=== PATIENT | female | born 1940 | race Caucasian/White ===

== ENCOUNTER → 2017-11-18 09:14 | Outpatient (CLI) | payer MEDICARE, SELFPAY ==
[2017-11-18 11:07] LABS: Alanine Aminotransferase 52 IU/L (9-52); Albumin 4.1 g/dL (3.5-5.0); Albumin Globulin Ratio 1.3 (1.0-2.8); Alkaline Phosphatase 98 U/L (38-126); Aspartate Aminotransferase 36 IU/L (14-36); BUN Creatinine Ratio 33.8 (6-22); Bilirubin Total 0.4 mg/dL (0.2-1.3); Blood Urea Nitrogen 27 mg/dL (7-17); Calcium 10.8 mg/dL (8.4-10.2); Carbon Dioxide 30 mmol/L (22-32); Chloride 105 mmol/L (98-107); Cholesterol 187 mg/dL (140-199); Estimated Glomerular Filt Rate > 60.0 mL/min (>60); Globulin 3.2 g/dL (1.7-4.1); Glucose 95 mg/dL (80-110); HDL Cholesterol 52 mg/dL (40-60); HEMOLYSIS < 15 (0-50); LDL Cholesterol Calculated 111 mg/dL (<100); Potassium 4.1 mmol/L (3.4-5.1); Sodium 143 mmol/L (137-145); Total Protein 7.3 g/dL (6.3-8.2); Triglycerides 121 mg/dL (35-150)
== END ==
PROVIDERS: PCP Internal Medicine; Visit Provider Internal Medicine
DX: E78.5 Hyperlipidemia, unspecified (principal)
CPT/HCPCS: 36415; 80053; 80061

== ENCOUNTER 2018-08-04 21:41 | Emergency (ER) | payer MEDICARE, SELFPAY ==
[2018-08-04 22:30] VITALS: BP 142/62; PULSE 94; RESP 16; TEMP 37.5; O2SAT 96
--- NOTE | 2018-08-04 22:44 | ED.FEMALEGU ---
HPI - Female Genitourinary General Chief complaint: Urogenital-Female Stated complaint: Possible UTI Time Seen by Provider: 08/04/18 22:36 Source: patient Mode of arrival: ambulatory Limitations: no limitations History of Present Illness HPI Narrative: Patient is 78-year-old female presenting with lower abdominal pain. she is a fairly new diagnosis of ovarian cancer. In fact she had surgery last week by [facility] where she had everything removed. She was doing okay until about 2 days ago where she started having increasing lower abdominal pain and frequent urination. No fever. No nausea or vomiting. Related Data Previous Rx's Medication Instructions Recorded lisinopril-hydrochlorothiazide 1 tab PO QAM #90 tab 10/20/16 metronidazole 1 demi TOPICAL BID #45 gm 10/20/16 naproxen 500 mg PO SEE INSTRUCTIONS #60 tab 10/20/16 hydrocodone-acetaminophen [[place]] 1 tab PO Q4-6H PRN #10 tab 08/05/18 levofloxacin [Levaquin] 750 mg PO DAILY #7 tab 08/05/18 Allergies Allergy/AdvReac Type Severity Reaction Status Date / Time No Known Drug Allergies Allergy Verified 08/04/18 22:30 Review of Systems Review of Systems ROS Unobtainable: All systems reviewed & are unremarkable except as noted in HPI and below Constitutional Reports chills, Denies fatigue and Denies fever(s) Cardiovascular Denies chest pain, Denies irregular heart rhythm, Denies lightheadedness, Denies palpitations, Denies dyspnea, Denies dyspnea on exertion and Denies orthopnea Respiratory Denies cough, Denies dyspnea, Denies dyspnea on exertion and Denies wheezing Gastrointestinal Gastrointestinal: Reports abdominal pain, Denies change in bowel habits, Denies diarrhea, Denies nausea and Denies vomiting Genitourinary Reports urinary incontinence Musculoskeletal Denies back pain, Denies muscle weakness, Denies numbness and Denies tingling Integumentary/Breasts Denies pruritus, Denies erythema, Denies rash and Denies wounds Neurologic Denies numbness and Denies tingling Endocrine Denies fatigue and Denies palpitations Allergic/Immunologic Denies wheezing [facility] Medical History (Updated 08/05/18 @ 05:32 by Melanie Pinedo DO) Ovarian cancer (Acute) Surgical History History of knee replacement S/P total abdominal hysterectomy and bilateral salpingo-oophorectomy (03/05/15) Status post hernia repair Social History Smoking Status: Unknown if ever smoked Social History Smoking Status: Unknown if ever smoked Exam Initial Vital Signs Initial Vital Signs: Vital Signs Temperature 99.5 F 08/04/18 22:30 Pulse Rate 94 H 08/04/18 22:30 Respiratory Rate 16 08/04/18 22:30 Blood Pressure 142/62 H 08/04/18 22:30 Pulse Oximetry 96 08/04/18 22:30 GENERAL: Patient appears in pain alert oriented x3 HEENT: Head atraumatic,EOMI, pupils reactive, neck is supple CARDIOVASCULAR: Regular rate and rhythm without murmurs, rubs or gallops. RESPIRATORY: Breath sounds equal bilaterally, no wheezes rales or rhonchi. ABDOMEN: Soft, nontender more left lower quadrant than right. Incision is with yvonne still in it no erythema no tenderness hernias appreciated normal bowel sounds EXTREMITIES: Normal range of motion, no clubbing or edema. Neurovascularly intact NEUROLOGICAL: Alert and oriented x4.Normal gait and speech. SKIN: Warm, dry, no laceration, no petechiae, no rashes or lesions. Course Orders Ordered: ED Orders 08/04/18 22:00 Urine Microscopic Stat 08/04/18 23:23 CT abdomen pelvis w con Stat 08/04/18 23:40 Complete Blood Count AUTO DIFF Stat Comprehensive Metabolic Panel Stat Lactate (Lactic Acid) Stat Lipase Stat 08/04/18 23:49 Blood Culture Stat Discontinued Medications Hydrocodone Bitart/Acetaminophen (Vicodin Prepack) 1 bottle MISC SEEINSTR ONE Stop: 08/05/18 03:43 Last Admin: 08/05/18 04:18 Dose: 1 bottle Hydromorphone HCl (Dilaudid) 0.5 mg IV NOW ONE Stop: 08/04/18 23:23 Last Admin: 08/04/18 23:36 Dose: 0.5 mg Hydromorphone HCl (Dilaudid) 0.5 mg IV NOW ONE Stop: 08/05/18 01:28 Last Admin: 08/05/18 01:28 Dose: 0.5 mg Sodium Chloride (Normal Saline 0.9%) 1,000 mls @ 1,000 mls/hr IV CONT PUMA Last Infusion: 08/05/18 01:28 Dose: 0 mls/hr Admin: 08/04/18 23:37 Dose: 1,000 mls/hr Levofloxacin (Levaquin) 750 mg PO NOW ONE Stop: 08/05/18 03:43 Last Admin: 08/05/18 04:18 Dose: 750 mg Ondansetron HCl (Zofran) 4 mg IV NOW ONE Stop: 08/04/18 23:50 Last Admin: 08/04/18 23:52 Dose: 4 mg Consultations Consultation #1: Dr. Valle Time: 03:30 Vital Signs - 8 hr 08/04/18 22:30 08/05/18 04:39 Temperature 99.5 F Pulse Rate 94 H 67 Respiratory Rate 16 16 Blood Pressure 142/62 H 138/72 Pulse Oximetry 96 98 MDM - Female Genitourinary Lab Data Attestation: I reviewed the patient's lab results. Result diagrams: 08/04/18 23:40 08/04/18 23:40 Lab Results 08/04/18 08/04/18 08/04/18 Range/Units 22:00 23:40 23:40 WBC 17.7 H (4.5-11.0) X10^3/uL RBC 4.38 (4.0-5.2) X10^6/uL Hgb 11.5 L (12.0-16.0) g/dL Hct 35.0 L (36-46) % MCV 80.1 (80-100) fL MCH 26.4 (26-34) PG MCHC 32.9 (30-36) % RDW 14.7 (11.6-14.8) % Plt Count 323 (150-400) X10^3/uL Neut % (Auto) 88.4 H (50-75) % Lymph % (Auto) 4.3 L (25-40) % [place] % (Auto) 6.8 (3-14) % Eos % (Auto) 0.1 L (2-4) % Baso % (Auto) 0.4 (0-2) % Neut # (Auto) 00662 H (8726-4474) /uL Lymph # (Auto) 800 L (7228-5766) /uL [place]ison # (Auto) 1200 H (0-900) /uL Eos # (Auto) 0 (0-450) /uL Baso # (Auto) 100 (0-100) /uL Sodium 136 L (137-145) mmol/L Potassium 4.1 (3.4-5.1) mmol/L Chloride 100 (98-107) mmol/L Carbon Dioxide 27 (22-32) mmol/L BUN 15 (7-17) mg/dL Creatinine 0.90 (0.52-1.04) mg/dL Estimated GFR > 60.0 (>60) mL/min BUN/Creatinine Ratio 16.7 (6-22) Glucose 123 H (80-110) mg/dL Lactate (0.7-2.1) mmol/L Calcium 10.1 (8.4-10.2) mg/dL Total Bilirubin 0.4 (0.2-1.3) mg/dL AST 38 H (14-36) IU/L ALT 55 H (9-52) IU/L Alkaline Phosphatase 151 H (38-126) U/L Total Protein 6.7 (6.3-8.2) g/dL Albumin 3.6 (3.5-5.0) g/dL Globulin 3.1 (1.7-4.1) g/dL Albumin/Globulin Ratio 1.2 (1.0-2.8) Lipase 45 (23-300) U/L Urine RBC 1-5/hpf (0-5/HPF) Urine WBC 5-10/hpf H (0-5/HPF) Ur Squamous Epith Cells 10-30 /hpf H (0-5/HPF) Urine Bacteria Moderate (10-30) H (None) Ur Culture Indicated? Cult not indicated 08/04/18 Range/Units 23:40 WBC (4.5-11.0) X10^3/uL RBC (4.0-5.2) X10^6/uL Hgb (12.0-16.0) g/dL Hct (36-46) % MCV (80-100) fL MCH (26-34) PG MCHC (30-36) % RDW (11.6-14.8) % Plt Count (150-400) X10^3/uL Neut % (Auto) (50-75) % Lymph % (Auto) (25-40) % [place] % (Auto) (3-14) % Eos % (Auto) (2-4) % Baso % (Auto) (0-2) % Neut # (Auto) (6005-4468) /uL Lymph # (Auto) (3917-4483) /uL Addison # (Auto) (0-900) /uL Eos # (Auto) (0-450) /uL Baso # (Auto) (0-100) /uL Sodium (137-145) mmol/L Potassium (3.4-5.1) mmol/L Chloride (98-107) mmol/L Carbon Dioxide (22-32) mmol/L BUN (7-17) mg/dL Creatinine (0.52-1.04) mg/dL Estimated GFR (>60) mL/min BUN/Creatinine Ratio (6-22) Glucose (80-110) mg/dL Lactate 0.9 (0.7-2.1) mmol/L Calcium (8.4-10.2) mg/dL Total Bilirubin (0.2-1.3) mg/dL AST (14-36) IU/L ALT (9-52) IU/L Alkaline Phosphatase (38-126) U/L Total Protein (6.3-8.2) g/dL Albumin (3.5-5.0) g/dL Globulin (1.7-4.1) g/dL Albumin/Globulin Ratio (1.0-2.8) Lipase (23-300) U/L Urine RBC (0-5/HPF) Urine WBC (0-5/HPF) Ur Squamous Epith Cells (0-5/HPF) Urine Bacteria (None) Ur Culture Indicated? Urine Dip Bedside Urine Glucose Negative Bedside Urine Bilirubin - Negative Bedside Urine Ketone ++ 40 Urine Specific [place] 1.020 Bedside Urine Occult Blood + Bedside Urine pH 6.5 Bedside Urine Protein + 30 Bedside Urine Urobilinogen - Negative Bedside Urine Nitrite - Negative Bedside Urine Leukocytes ++ [address] scan - abdomen: Radiologist's impression: production shift supervisor report: Large serpentine fluid collection left lower quadrant and pelvis. Question large seroma versus abscess. Vertically-oriented fluid collection low abdominal and pelvic wall question seroma versus abscess MDM Narrative Medical decision making narrative: The patient received Dilaudid for pain which seemed to help. She has low-grade fever and leukocytosis of 17. I have called and spoken with Dr. Valle, oncology accounts receivable associate at [facility]. She has reviewed the CT herself. At this time is does not think patient needs to be transferred no drain needed. However she does recommend antibiotics. She is aware of patient's leukocytosis and low-grade fever. Recommend outpatient follow-up. The patient's biggest complaint is urinary incontinence. It is possible she has a UTI however squamous epithelial cells 10-30. The patient will go home with Levaquin she received her 1st dose in the ED. Overall she does not appear septic. Lactic acid is normal vitals within normal limits. and pain is controlled with Dilaudid. Discussed with both patient and plan of follow-up in clinic and antibiotics. Discharge Plan Departure Patient Disposition: Home Clinical Impression: Acute UTI Discharge Date/Time: 08/05/18 04:40 Interventions: ED Discharge Assessment Last Done: 08/05/18 04:39 Instructions: DI for Urinary Tract Infection (UTI) Activity Restrictions/Additional Instructions: *You have been diagnosed with UTI, abdominal seroma *What to do: At this time ER found to have a fluid collection on the left side. I have spoken with [facility] at this time recommend conservative treatment with antibiotics and pain control. Hopefully it resolved on its own. They should call you tomorrow to schedule follow-up next week *Continue to take medications as directed Levaquin 750 mg once a day for 7 days [place] 1 tablet every 4 hours or 2 tablets every 6 hours only if needed for severe pain *Follow up with your primary care provider in 2-3 days, [facility], if you do not hear from them tomorrow by noon please call them to schedule follow-up appointment for next week *Return to ER if you should have increasing pain, fever, persistent vomiting or any new, worsening or concerning symptoms CONTROLLED SUBSTANCE DISCHARGE (Narcotoic/benzodiazepine/Flexeril/Phenergan) 1. You have been prescribed narcotic medications, it does have acetaminophen/Tylenol/paracetamol in it so do not take extra Tylenol or Tylenol containing products 2. Please understand that we cannot provide further refills of narcotics, benzodiazepines or controlled substances through the ED and her pain management will need to be through your provider. 3. While on these medications you cannot drive or operate heavy machinery. 4. You cannot sign legal documents or perform any duties such as this. 5. As long as you're taking opiate pain medications he should also be taking a stool softener such as Colace, Dulcolax, MiraLAX or prune juice, to help avoid constipation. Prescriptions: New hydrocodone-acetaminophen [[place]] 7.5-325 mg tablet 1 tab PO Q4-6H PRN (Reason: pain) Qty: 10 RF: 0 levofloxacin [Levaquin] 750 mg tablet 750 mg PO DAILY Qty: 7 RF: 0 No Action lisinopril-hydrochlorothiazide 20 MG/12.5 MG tablet 1 tab PO QAM Qty: 90 RF: 3 metronidazole 0.75 % cream 1 demi Topical BID Qty: 45 RF: 12 naproxen 500 MG tablet 500 mg PO SEE INSTRUCTIONS Qty: 60 RF: 4
[2018-08-04 22:47] LABS: Bacteria Urine Moderate (10-30); Culture Indicated Urine Cult Not Indicated; RBC Urine 1-5/HPF (0-5/HPF); Squamous Epithelial Cell Urine 10-30 /HPF (0-5/HPF); WBC Urine 5-10/HPF (0-5/HPF)
--- NOTE | 2018-08-04 23:23 | DI.CT.S_ITS ---
PROCEDURE: CT ABDOMEN PELVIS W CON INDICATIONS: ovarian cancer surgery last week increase in pain TECHNIQUE: After the administration of intravenous contrast, 5 mm thick sections acquired from the diaphragm to the symphysis. 5 mm coronal and sagittal reformats were acquired. For radiation dose reduction, the following was used: automated exposure control, adjustment of mA and/or kV according to patient size. COMPARISON: [facility], , ABDOMEN COMPLETE, 06/25/2017, 11:09. FINDINGS: Image quality: Excellent. ABDOMEN: Lung bases: Linear scarring/atelectasis in posterior aspect of bilateral lung bases are seen. Heart size is normal. Solid organs: Liver is normal in size. Hepatic steatosis is seen. 1.3 x 0.9 cm hypodensity involving left lobe of liver is noted, which may represent hepatic cyst. Gallbladder is within normal limits. Biliary system is non dilated. Pancreas enhances normally. Spleen is normal in size and enhancement. No adrenal nodules. Kidneys demonstrate normal size and enhancement, without hydronephrosis. Peritoneum and bowel: There is a small hiatal hernia. No evidence of bowel obstruction. Extensive sigmoid diverticulosis is seen, no CT evidence of acute diverticulitis. Postsurgical changes are noted in left lower quadrant abdomen with multiple surgical clips. There is a serpentine fluid collection in left lower quadrant abdomen/pelvis and measures water density, measures up to 12 x 12 x 14 cm in its largest transverse comminuted clinical information. No definite enhancing wall is seen. Nodes and vessels: No retroperitoneal or mesenteric adenopathy by size criteria. Aorta and inferior vena cava are normal in size. Miscellaneous: Midline incisional wound is seen. 3 x 3.1 x 5 cm fluid collection is seen deep to the pelvic incisional wound within the anterior pelvic wall subcutaneous fat. PELVIS: Genitourinary: Bladder wall thickness is normal. Miscellaneous: No inguinal hernias or adenopathy. Bones: No suspicious bony lesions. No vertebral body compression fractures. Degenerative disc disease throughout lower thoracic and lumbar spine is seen. IMPRESSION: 1. Postsurgical changes in left lower abdomen/pelvis. Large serpentine fluid collection in left lower abdomen and pelvis surrounding the area of surgical clips, likely represent large seroma. Early abscess collection cannot be entirely excluded although no definite enhancing wall is noted at this time. 2. Midline incision wound with a 3.1 x 3 x 5 cm pocket of fluid in the anterior pelvic wall the 2-D incision site, which could represent a postsurgical seroma. Early abscess collection cannot be entirely excluded. 3. No evidence of bowel obstruction. Extensive sigmoid diverticulosis with no CT evidence of acute diverticulitis. No gross peritoneal free air. 4. Hepatic steatosis. Possible cyst in left lobe of liver. Dictated by: Rosendo Paiz M.D. on 08/05/2018 at 8:13 Approved by: Rosendo Paiz M.D. on 08/05/2018 at 8:22
[2018-08-04] MEDS: HYDROMORPHONE 1 MG INJ 0.5 MG IV (23:36)
[2018-08-04] MEDS: SODIUM CHLORIDE 0.9% 1,000 ML 1000 ML IV (23:37)
--- NOTE | 2018-08-04 23:48 | PC.NURSE ---
Pt also had abdominal surgery to remove any CA from abdominal/pelvis. Pt was already post hysterectomy.
[2018-08-04] MEDS: ONDANSETRON 4 MG/2 ML INJ IV (23:52)
--- NOTE | 2018-08-04 23:52 | PC.NURSE ---
pt reports being nausious from the drugs, provider notified, verbal order for zofran received.
[2018-08-04 23:53] LABS: Add Manual Diff / Slide Review NO; Basophils Absolute Auto 100 /uL (0-100); Basophils Percent Auto 0.4 % (0-2); Eosinophils Absolute Auto 0 /uL (0-450); Eosinophils Percent Auto 0.1 % (2-4); Hemoglobin 11.5 g/dL (12.0-16.0); Lymphocytes Absolute Auto 800 /uL (1100-4500); Lymphocytes Percent Auto 4.3 % (25-40); Mean Corpuscular HGB Conc 32.9 % (30-36); Mean Corpuscular Hemoglobin 26.4 PG (26-34); Mean Corpuscular Volume 80.1 fL (80-100); Monocytes Absolute Auto 1200 /uL (0-900); Monocytes Percent Auto 6.8 % (3-14); Neutrophils Absolute Auto 15600 /uL (1500-7000); Neutrophils Percent Auto 88.4 % (50-75); Platelet Count 323 X10^3/uL (150-400); Red Blood Cell Count 4.38 X10^6/uL (4.0-5.2); Red Cell Distribution Width 14.7 % (11.6-14.8); White Blood Cell Count 17.7 X10^3/uL (4.5-11.0)
[2018-08-05 00:02] LABS: Alanine Aminotransferase 55 IU/L (9-52); Albumin 3.6 g/dL (3.5-5.0); Albumin Globulin Ratio 1.2 (1.0-2.8); Alkaline Phosphatase 151 U/L (38-126); Aspartate Aminotransferase 38 IU/L (14-36); BUN Creatinine Ratio 16.7 (6-22); Bilirubin Total 0.4 mg/dL (0.2-1.3); Blood Urea Nitrogen 15 mg/dL (7-17); Calcium 10.1 mg/dL (8.4-10.2); Carbon Dioxide 27 mmol/L (22-32); Chloride 100 mmol/L (98-107); Estimated Glomerular Filt Rate > 60.0 mL/min (>60); Globulin 3.1 g/dL (1.7-4.1); Glucose 123 mg/dL (80-110); HEMOLYSIS < 15 (0-50); Lipase 45 U/L (23-300); Potassium 4.1 mmol/L (3.4-5.1); Sodium 136 mmol/L (137-145); Total Protein 6.7 g/dL (6.3-8.2)
[2018-08-05 00:03] LABS: Lactate (Lactic Acid) 0.9 mmol/L (0.7-2.1)
[2018-08-05] MEDS: HYDROMORPHONE 1 MG INJ 0.5 MG IV (01:28)
[2018-08-05] MEDS: levoFLOXacin 250 MG TABLET 750 MG PO (04:18)
[2018-08-05] MEDS: HYDROCODONE/ACET 5/325 PREPACK 1 BOTTLE MISC (04:18)
[2018-08-05 04:39] VITALS: BP 138/72; PULSE 67; RESP 16; O2SAT 98
== END 2018-08-05 04:40 | disposition home or self-care (01) ==
PROVIDERS: Emergency Provider Emergency Medicine; Family Provider Internal Medicine Endocrinology, Diabetes & Metabolism
DX: N39.0 Urinary tract infection, site not specified (principal)
CPT/HCPCS: 36415; 36591; 74177; 80053; 81003; 81015; 83605; 83690; 85025; 87040; 96361; 96374; 96375; 96376; 99283; 99284; J1170; J2405; Q9967

== ENCOUNTER → 2019-03-16 08:35 | Outpatient (CLI) | payer MEDICARE, SELFPAY ==
--- NOTE | 2019-03-16 | DI.US.S_ITS ---
PROCEDURE: US THYROID INDICATIONS: NONTOXIC MULTINODULAR GOITER TECHNIQUE: Real-time scanning was performed of the thyroid gland, with image documentation. COMPARISON: [facility], US, THYROID, 06/25/2017, 13:10. FINDINGS: Right: Thyroid lobe measures 7.2 x 2.3 x 2.9 cm, and is diffusely heterogeneous in echotexture. Left: Left thyroidectomy. Isthmus: 3.0 mm thick. Nodule number: 1 Location: Right inferior Size: Unchanged 1.4 x 1.2 x 1.5 cm. Composition: Predominantly cystic Echogenicity: Hypoechoic Shape: wider than tall. Margins: Smooth Echogenic foci: None Total points: 3 ACR TI-RADS category: Mildly suspicious Nodule number: 2 Location: Right mid Size: Unchanged a 2.0 0.9 x 1.1 cm. Composition: Predominantly solid Echogenicity: Isoechoic Shape: Wider than tall Margins: Smooth Echogenic foci: Internal punctate echogenic foci Total points: 6 ACR TI-RADS category: Moderately suspicious Nodule number: 3 Location: Right mid Size: Unchanged 1.2 x 1.1 x 1.0 cm. Composition: Predominantly cystic Echogenicity: Hypoechoic Shape: wider than tall. Margins: Smooth Echogenic foci: Internal punctate echogenic foci Total points: 5 ACR TI-RADS category: Moderately suspicious Nodule number: 4 Location: Right medial Isthmus Size: Unchanged at 0.7 x 0.5 x 1.0 cm Composition: Predominantly solid Echogenicity: Hypoechoic Shape: wider than tall. Margins: Smooth Echogenic foci: None Total points: 4 ACR TI-RADS category: Moderately suspicious Nodule number: 5 Location: Right superior Size: 1.3 x 0.9 x 1.1 cm. Composition: Predominantly solid Echogenicity: Isoechoic Shape: wider than tall. Margins: Smooth Echogenic foci: None Total points: 3 ACR TI-RADS category: Mildly suspicious IMPRESSION: There is a new 13 mm right thyroid nodule; otherwise the additional right thyroid nodules are not significantly changed from prior examination. Recommend continued followup ultrasound as detailed below. ACR TI-RADS definitions and recommendations: TI-RADS 1 (benign): 0 points. FNA not needed. TI-RADS 2 (not suspicious): 2 points. FNA not needed. TI-RADS 3 (mildly suspicious): 3 points. * FNA if 2.5 cm or larger, follow up if 1.5 cm or larger (at 1, 3, and 5 years). TI-RADS 4 (moderately suspicious): 4-6 points. * FNA if 1.5 cm or larger, follow up if 1 cm or larger (at 1, 2, 3, and 5 years). TI-RADS 5 (highly suspicious): 7 points or more. * FNA if 1 cm or larger, follow up if 0.5 cm or larger (every year for 5 years). Dictated by: Trent ROSS Interpreted: Pb Bo MD on 03/16/2019 at 13:23 Approved by: Pb Bo M.D. on 03/16/2019 at 17:09
== END ==
PROVIDERS: Family Provider Internal Medicine Endocrinology, Diabetes & Metabolism; PCP Family Medicine; Visit Provider Family Medicine
DX: E04.2 Nontoxic multinodular goiter (principal)
CPT/HCPCS: 76536

== ENCOUNTER 2019-05-11 11:07 | Emergency (ER) | payer MEDICARE, SELFPAY ==
[2019-05-11] VITALS (18 sets, daily range): BP systolic 123–181; BP diastolic 59–85; PULSE 60–94; RESP 12–22; TEMP 36.8; O2SAT 94–100; BMI 34.2
--- NOTE | 2019-05-11 11:21 | PC.NURSE ---
not tolerated, unable to void.
--- NOTE | 2019-05-11 11:35 | DI.CT.S_ITS ---
PROCEDURE: CT LE RT WO CON INDICATIONS: worsening r hip pain TECHNIQUE: Noncontrast 3 mm axial sections acquired through the bony pelvis. Additional 3 mm axial sections acquired through the symptomatic hip joint, with coronal and sagittal reformats. COMPARISON: [facility], CT, CT ABDOMEN PELVIS W CON, 08/05/2018, 0:09. FINDINGS: Image quality: Excellent. Bones: An osteolytic process is present at the femoral neck and intertrochanteric region of the right hip, with a pathologic fracture that is nondisplaced at the upper and lower margins of this abnormality and also a cortical defect at the anterior border of the junction of the femoral neck and intertrochanteric right femur measuring up to 1.3 cm in maximal dimension. The overall osteolytic process measures up to 3.8 cm transverse, 2.4 cm oblique AP, and 4.8 cm craniocaudad. Soft tissues: No discrete mass or adenopathy seen. 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 There is potential for progression of the pathologic process to unstable fracture. Findings immediately called to the emergency room physician caring for the patient. It may be warranted to obtain a whole body nuclear medicine bone scan to assess for additional metastatic disease. Dictated by: Yahir Goldman M.D. on 05/11/2019 at 12:07 Approved by: Yahir Goldman M.D. on 05/11/2019 at 12:19
--- NOTE | 2019-05-11 11:44 | ED_ITS ---
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 She states this has been ongoing since 7 months, she was a scheduled to see an orthopedic yesterday but could not get to her appointment due to the snow. However, she presents today for worsening pain. She has been able to walk with a cane over the past few months but she was walking up the stairs to 3 days ago and noticed increasing pain the immediate very difficult to put weight on her hip. She was seen in a different emergency department in October and had x-rays which were negative, another provider recommended a CT. She denies any trauma to the area, fevers, chills, nausea, vomiting, diarrhea, rash, bruising, or other concerns. She states the pain is a dull aching 10/10 that is worse with movement and weight-bearing and better with rest. patient states she last ate dinner at 6:00 p.m. last night. She had a few sips of coffee this morning at 6:00 a.m.. Patient states she lives on [facility]. Related Data Home Medications Medication Instructions Recorded Confirmed amlodipine 10 mg PO QAM 05/11/19 05/11/19 cholecalciferol (vitamin D3) 2,000 unit PO DAILY 05/11/19 05/11/19 [Vitamin D3] fluoxetine 10 mg PO QAM 05/11/19 05/11/19 magnesium oxide 400 mg PO DAILY 05/11/19 05/11/19 megestrol 80 mg PO BID 05/11/19 05/11/19 vitamin B complex [B-Complex] 1 tab PO QAM 05/11/19 05/11/19 Allergies Allergy/AdvReac Type Severity Reaction Status Date / Time No Known Drug Allergies Allergy Verified 05/11/19 18:02 Review of Systems <NIK Ovalles - Last Filed: 05/11/19 20:53> Review of Systems Narrative: REVIEW OF SYSTEMS: GENERAL: Denies fever or chills. HENT: No head trauma. EYES: No double vision or vision loss. CARDIOVASCULAR: No chest pain or syncope. RESPIRATORY: No shortness of breath or cough. GASTROINTESTINAL: No nausea, vomiting, diarrhea, or constipation. GENITOURINARY: No flank pain or dysuria. MUSCULOSKELETAL: Complains of right hip pain, see HPI. INTEGUMENTARY: No rash, lesions, or pruritus. NEURO: No numbness, tingling. PSYCH: No behavior or mood changes. Patient History <NIK Ovalles - Last Filed: 05/11/19 20:53> Medical History Ovarian cancer (Acute) Surgical History History of knee replacement S/P total abdominal hysterectomy and bilateral salpingo-oophorectomy (03/05/15) Status post hernia repair Social History Smoking Status: Unknown if ever smoked Smoking Status: Unknown if ever smoked alcohol intake frequency: holidays/special occasions only Alcohol type: beer, wine and hard liquor Substance Use Type: does not use Exam <NIK Ovalles - Last Filed: 05/11/19 20:53> Initial Vital Signs Initial Vital Signs: Vital Signs Temperature 98.2 F 05/11/19 11:02 Pulse Rate 94 H 05/11/19 11:02 Respiratory Rate 16 05/11/19 11:02 Blood Pressure 181/85 H 05/11/19 11:02 Pulse Oximetry 100 05/11/19 11:02 PHYSICAL EXAMINATION: GENERAL: Well groomed, alert, and cooperative. Answers questions promptly and appropriately. Vital signs noted. HENT: Normocephalic, atraumatic. EYES: Symmetrical, sclera white, no periorbital swelling. CARDIOVASCULAR: S1 and S2 sounds normal. Regular rate and rhythm, no murmurs, clicks, or bruits. No pedal edema. RESPIRATORY: Normal respiratory rate, trachea midline, airway patent. No stridor, nasal flaring or accessory muscle use. Lungs are clear in all royal. MUSCULOSKELETAL: Tenderness to palpation of right groin and lateral aspect of right hip joint, Pain reproduced with elevating leg, internal rotation and external rotation. Equal tone and mass bilaterally. No Noticeable deformities, rotation, or shortening. EXTREMITIES: CMS intact. Pedal pulses 2+ and equal bilaterally. SKIN: Warm, dry, soft, appropriate color for ethnicity. No lesions, rashes, or wounds. NEURO: Alert and Oriented X 3. No sensory deficits. PSYCH: Appropriate affect and mood. <Ilda Hill DO - Last Filed: 05/12/19 01:45> Initial Vital Signs Initial Vital Signs: Vital Signs Temperature 98.2 F 05/11/19 11:02 Pulse Rate 94 H 05/11/19 11:02 Respiratory Rate 16 05/11/19 11:02 Blood Pressure 181/85 H 05/11/19 11:02 Pulse Oximetry 100 05/11/19 11:02 Course <NIK Ovalles - Last Filed: 05/11/19 20:53> Course Course Narrative: Patient was initially given Toradol for pain relief. Patient was given 2 doses of 4 mg of morphine over 1-2 hours, she was awakened continued to complain of pain. Patient was given a dose of 0.5 mg of Dilaudid which significantly decreased her pain. Patient's arrived and I explained the situation to patient's and answered all questions. Patient was given more pain medication, see CANDICE during long stay in the ED due to wait times for transferring and consults. She was then switched to oral medication to temp better pain control. Stallings catheter was inserted. Orders Ordered: Ondansetron HCl (Zofran) 4 mg IV Q6HR PRN PRN Reason: Nausea Oxycodone/Acetaminophen (Percocet 5/325) 2 tab PO Q4H PRN PRN Reason: Pain, Severe (7-10) Stop: 05/14/19 22:58 Discontinued Medications Al Hydrox/Mg Hydrox/Simethicone (Maalox Plus) 30 ml PO NOW ONE Stop: 05/11/19 21:27 Last Admin: 05/11/19 21:37 Dose: 30 ml Documented by: PAN Diphenhydramine HCl (Benadryl) 25 mg IV NOW ONE Stop: 05/11/19 19:31 Last Admin: 05/11/19 19:33 Dose: 25 mg Documented by: LORRIEFARJaswinder Hydromorphone HCl (Dilaudid) 0.5 mg IV NOW ONE Stop: 05/11/19 13:50 Last Admin: 05/11/19 14:51 Dose: 0.5 mg Documented by: SAPPHIRESENCarie Hydromorphone HCl (Dilaudid) 0.5 mg IV NOW ONE Stop: 05/11/19 17:14 Last Admin: 05/11/19 17:16 Dose: 0.5 mg Documented by: CHRISTOPHER Hydromorphone HCl (Dilaudid) 1 mg IV NOW ONE Stop: 05/11/19 18:10 Last Admin: 05/11/19 18:15 Dose: 1 mg Documented by: PAN Hydromorphone HCl (Dilaudid) 1 mg IV NOW ONE Stop: 05/12/19 01:27 Last Admin: 05/12/19 01:31 Dose: 1 mg Documented by: CARMEN Ketorolac Tromethamine (Toradol) 30 mg IM NOW ONE Stop: 05/11/19 11:38 Last Admin: 05/11/19 12:05 Dose: 30 mg Documented by: CHRISTOPHER Lidocaine HCl (Urojet) 5 ml TOP NOW ONE Stop: 05/11/19 18:22 Last Admin: 05/11/19 18:24 Dose: 5 ml Documented by: PAN Morphine Sulfate (Morphine) 4 mg IV NOW ONE Stop: 05/11/19 12:16 Last Admin: 05/11/19 12:21 Dose: 4 mg Documented by: CHRISTOPHER Morphine Sulfate (Morphine) 4 mg IV NOW ONE Stop: 05/11/19 12:58 Last Admin: 05/11/19 13:13 Dose: 4 mg Documented by: CHRISTA Ondansetron HCl (Zofran) 4 mg IV NOW ONE Stop: 05/11/19 12:16 Last Admin: 05/11/19 12:21 Dose: 4 mg Documented by: CHRISTOPHER Oxycodone HCl (Percolone) 10 mg PO NOW ONE Stop: 05/11/19 23:00 Last Admin: 05/11/19 23:11 Dose: 10 mg Documented by: CARMEN Oxycodone/Acetaminophen (Percocet 5/325) 2 tab PO NOW ONE Stop: 05/11/19 19:31 Last Admin: 05/11/19 19:33 Dose: 2 tab Documented by: MMCFARL Consultations Consultation #1: Radiology called report of CT to Sah[facility] Harris. Consultation #2: Patient staffed with Dr. Harris Consultation #3: Dr. Capellan was consulted, he recommends transfer to a facility with higher level of care due to complexity of lesions and fracture. Patient states her removal of her tumors in July was done at , [facility] contacted and images pushed for consultation. Time: 19:10 Additional Consultation(s): I spoke with Dr. Demarcus Malik at who accepts the patient. Transfer center advised that they will contact us pending bed avaliable. Vital Signs Vital signs: Vital Signs - 8 hr 05/11/19 19:30 05/11/19 20:00 05/11/19 21:00 Pulse Rate 68 69 63 Respiratory Rate 18 18 17 Blood Pressure [Left Arm] 138/60 142/75 H 141/64 H Pulse Oximetry 98 98 97 05/11/19 21:30 05/11/19 23:01 05/11/19 23:02 Pulse Rate 62 62 60 Respiratory Rate 16 16 12 Blood Pressure [Left Arm] 143/63 H 149/59 H Pulse Oximetry 97 97 97 <Ilda Hill, - Last Filed: 05/12/19 01:45> Orders Ordered: Ondansetron HCl (Zofran) 4 mg IV Q6HR PRN PRN Reason: Nausea Oxycodone/Acetaminophen (Percocet 5/325) 2 tab PO Q4H PRN PRN Reason: Pain, Severe (7-10) Stop: 05/14/19 22:58 Discontinued Medications Al Hydrox/Mg Hydrox/Simethicone (Maalox Plus) 30 ml PO NOW ONE Stop: 05/11/19 21:27 Last Admin: 05/11/19 21:37 Dose: 30 ml Documented by: PAN Diphenhydramine HCl (Benadryl) 25 mg IV NOW ONE Stop: 05/11/19 19:31 Last Admin: 05/11/19 19:33 Dose: 25 mg Documented by: DORA Hydromorphone HCl (Dilaudid) 0.5 mg IV NOW ONE Stop: 05/11/19 13:50 Last Admin: 05/11/19 14:51 Dose: 0.5 mg Documented by: CHRISTOPHER Hydromorphone HCl (Dilaudid) 0.5 mg IV NOW ONE Stop: 05/11/19 17:14 Last Admin: 05/11/19 17:16 Dose: 0.5 mg Documented by: CHRISTOPHER Hydromorphone HCl (Dilaudid) 1 mg IV NOW ONE Stop: 05/11/19 18:10 Last Admin: 05/11/19 18:15 Dose: 1 mg Documented by: PAN Hydromorphone HCl (Dilaudid) 1 mg IV NOW ONE Stop: 05/12/19 01:27 Last Admin: 05/12/19 01:31 Dose: 1 mg Documented by: CARMEN Ketorolac Tromethamine (Toradol) 30 mg IM NOW ONE Stop: 05/11/19 11:38 Last Admin: 05/11/19 12:05 Dose: 30 mg Documented by: CHRISTOPHER Lidocaine HCl (Urojet) 5 ml TOP NOW ONE Stop: 05/11/19 18:22 Last Admin: 05/11/19 18:24 Dose: 5 ml Documented by: PAN Morphine Sulfate (Morphine) 4 mg IV NOW ONE Stop: 05/11/19 12:16 Last Admin: 05/11/19 12:21 Dose: 4 mg Documented by: CHRISTOPHER Morphine Sulfate (Morphine) 4 mg IV NOW ONE Stop: 05/11/19 12:58 Last Admin: 05/11/19 13:13 Dose: 4 mg Documented by: CHRISTA Ondansetron HCl (Zofran) 4 mg IV NOW ONE Stop: 05/11/19 12:16 Last Admin: 05/11/19 12:21 Dose: 4 mg Documented by: CHRISTOPHER Oxycodone HCl (Percolone) 10 mg PO NOW ONE Stop: 05/11/19 23:00 Last Admin: 05/11/19 23:11 Dose: 10 mg Documented by: CARMEN Oxycodone/Acetaminophen (Percocet 5/325) 2 tab PO NOW ONE Stop: 05/11/19 19:31 Last Admin: 05/11/19 19:33 Dose: 2 tab Documented by: DORA Vital Signs Vital signs: Vital Signs - 8 hr 05/11/19 19:30 05/11/19 20:00 05/11/19 21:00 Pulse Rate 68 69 63 Respiratory Rate 18 18 17 Blood Pressure [Left Arm] 138/60 142/75 H 141/64 H Pulse Oximetry 98 98 97 05/11/19 21:30 05/11/19 23:01 05/11/19 23:02 Pulse Rate 62 62 60 Respiratory Rate 16 16 12 Blood Pressure [Left Arm] 143/63 H 149/59 H Pulse Oximetry 97 97 97 MDM - Extremity Injury (Lower) <MargyNIK Thurman - Last Filed: 05/11/19 20:53> Medical Records Attestation: I reviewed the patient's medical records. Lab Data Attestation: I reviewed the patient's lab results. Result diagrams: 05/11/19 16:40 05/11/19 16:40 Labs: Lab Results 05/11/19 05/11/19 Range/Units 16:40 16:40 WBC 7.9 (4.5-11.0) X10^3/uL RBC 4.64 (4.0-5.2) X10^6/uL Hgb 12.7 (12.0-16.0) g/dL Hct 38.4 (36-46) % MCV 82.7 (80-100) fL MCH 27.4 (26-34) PG MCHC 33.2 (30-36) % RDW 13.6 (11.6-14.8) % Plt Count 230 (150-400) X10^3/uL Neut % (Auto) 70.9 (50-75) % Lymph % (Auto) 17.6 L (25-40) % [place] % (Auto) 9.4 (3-14) % Eos % (Auto) 1.3 L (2-4) % Baso % (Auto) 0.8 (0-2) % Neut # (Auto) 5600 (6882-0380) /uL Lymph # (Auto) 1400 (7482-7333) /uL [facility] [place] # (Auto) 700 (0-900) /uL Eos # (Auto) 100 (0-450) /uL Baso # (Auto) 100 (0-100) /uL Sodium 139 (137-145) mmol/L Potassium 3.9 (3.4-5.1) mmol/L Chloride 107 (98-107) mmol/L Carbon Dioxide 26 (22-32) mmol/L BUN 17 (7-17) mg/dL Creatinine 0.80 (0.52-1.04) mg/dL Estimated GFR > 60.0 (>60) mL/min BUN/Creatinine Ratio 21.3 (6-22) Glucose 87 (80-110) mg/dL Calcium 11.1 H (8.4-10.2) mg/dL Total Bilirubin 0.4 (0.2-1.3) mg/dL AST 20 (14-36) IU/L ALT 14 (<35) IU/L Alkaline Phosphatase 67 (38-126) U/L Total Protein 6.8 (6.3-8.2) g/dL Albumin 3.6 (3.5-5.0) g/dL Globulin 3.2 (1.7-4.1) g/dL Albumin/Globulin Ratio 1.1 (1.0-2.8) Urine Dip Bedside Urine Glucose Negative Bedside Urine Bilirubin - Negative Bedside Urine Ketone + 15 Urine Specific [place] 1.025 Bedside Urine Occult Blood - Negative Bedside Urine pH 6.0 Bedside Urine Protein +/- 15 Bedside Urine Urobilinogen - Negative Bedside Urine Nitrite - Negative Bedside Urine Leukocytes - Negative Esterase Imaging Data R hip CT: Radiologist's Impression: [place] [id number] CT Scan Report Signed Patient: Rosa Zelaya [facility]#: [id number] : 2Acct:[id number] Age/Sex: 78 / FDate of Service: 05/11/19 Loc: ED Accession Number: [id number] Procedure: CT LE RT wo con Ordering Provider: Margy Jimenez PROCEDURE: CT LE RT WO CON INDICATIONS: worsening r hip pain TECHNIQUE: Noncontrast 3 mm axial sections acquired through the bony pelvis. Additional 3 mm axial sections acquired through the symptomatic hip joint, with coronal and sagittal reformats. COMPARISON: [facility], CT, CT ABDOMEN PELVIS W CON, 08/05/2018, 0:09. FINDINGS: Image quality: Excellent. Bones: An osteolytic process is present at the femoral neck and intertrochanteric region of the right hip, with a pathologic fracture that is nondisplaced at the upper and lower margins of this abnormality and also a cortical defect at the anterior border of the junction of the femoral neck and intertrochanteric right femur measuring up to 1.3 cm in maximal dimension. The overall osteolytic process measures up to 3.8 cm transverse, 2.4 cm oblique AP, and 4.8 cm craniocaudad. Soft tissues: No discrete mass or adenopathy seen. 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 There is potential for progression of the pathologic process to unstable fracture. Findings immediately called to the emergency room physician caring for the patient. It may be warranted to obtain a whole body nuclear medicine bone scan to assess for additional metastatic disease. Dictated by: Yahir Goldman M.D. on 05/11/2019 at 12:07 Approved by: Yahir Goldman M.D. on 05/11/2019 at 12:19 MDM Narrative Medical decision making narrative: This is a 78-year-old female with a history of a removal of a Leomyosarcoma tumor in July 2018 and history of a parathyroid tumor presenting for ongoing and worsening right hip pain which appears to be a pathological fracture related to an osteolytic lesion as appar ent on CT. In-hospital orthopedic advised transfer. Patient requested transfer to as leomyosarcoma tumors were removed at previously and she was scheduled to see a orthopedic physician yesterday at . Dr. Malik accepted patient. CMS remains intact throughout the emergency department stay. There is suspicion for other malignancy due to patient's history and appearance of lesion. Radiologist advised PET in the future to rule other metastasis. Patient remained hemodynamically stable throughout the entire emergency department stay. She has been alert and oriented and able to verbalize request. Patient has been remains at bedside. Less suspicion for others to use etiologies such as cardia, acute abdominal, or respiratory etiology due to lack of other symptoms and non-remarkable lab work. <Ilda Hill, DO - Last Filed: 05/12/19 01:45> Lab Data Attestation: I reviewed the patient's lab results. Labs: Lab Results 05/11/19 05/11/19 Range/Units 16:40 16:40 WBC 7.9 (4.5-11.0) X10^3/uL RBC 4.64 (4.0-5.2) X10^6/uL Hgb 12.7 (12.0-16.0) g/dL Hct 38.4 (36-46) % MCV 82.7 (80-100) fL MCH 27.4 (26-34) PG MCHC 33.2 (30-36) % RDW 13.6 (11.6-14.8) % Plt Count 230 (150-400) X10^3/uL Neut % (Auto) 70.9 (50-75) % Lymph % (Auto) 17.6 L (25-40) % [place] % (Auto) 9.4 (3-14) % Eos % (Auto) 1.3 L (2-4) % Baso % (Auto) 0.8 (0-2) % Neut # (Auto) 5600 (4621-5507) /uL Lymph # (Auto) 1400 (3693-3646) /uL [facility] # (Auto) 700 (0-900) /uL Eos # (Auto) 100 (0-450) /uL Baso # (Auto) 100 (0-100) /uL Sodium 139 (137-145) mmol/L Potassium 3.9 (3.4-5.1) mmol/L Chloride 107 (98-107) mmol/L Carbon Dioxide 26 (22-32) mmol/L BUN 17 (7-17) mg/dL Creatinine 0.80 (0.52-1.04) mg/dL Estimated GFR > 60.0 (>60) mL/min BUN/Creatinine Ratio 21.3 (6-22) Glucose 87 (80-110) mg/dL Calcium 11.1 H (8.4-10.2) mg/dL Total Bilirubin 0.4 (0.2-1.3) mg/dL AST 20 (14-36) IU/L ALT 14 (<35) IU/L Alkaline Phosphatase 67 (38-126) U/L Total Protein 6.8 (6.3-8.2) g/dL Albumin 3.6 (3.5-5.0) g/dL Globulin 3.2 (1.7-4.1) g/dL Albumin/Globulin Ratio 1.1 (1.0-2.8) Urine Dip Bedside Urine Glucose Negative Bedside Urine Bilirubin - Negative Bedside Urine Ketone + 15 Urine Specific [place] 1.025 Bedside Urine Occult Blood - Negative Bedside Urine pH 6.0 Bedside Urine Protein +/- 15 Bedside Urine Urobilinogen - Negative Bedside Urine Nitrite - Negative Bedside Urine Leukocytes - Negative Esterase MDM Narrative Medical decision making narrative: Patient was signed out to myself by GAURAV Jimenez while awaiting bed assignment at [facility], patient has been accepted by Dr. Friedman. Patient was seen by myself here in the department. She has continued to have pain but has been better controlled with Percocet then she was with IV pain medications. Patient does require oxygen when she falls asleep and was placed on 2 L nasal cannula. Otherwise she has not had any other vital sign abnormalities. Labs were reviewed she has some hypercalcemia at 11.1, CBC and CMP otherwise do not show major abnormalities. Imaging was reviewed. Patient transferred ALS as she requires oxygen and potentially additional pain medication. Patient was contacted and updated that transfer was occuring as he had left to get some sleep at a friends house. Patient received additional IV pain meds for transfer. Discharge Plan Departure Patient Disposition: [facility] Clinical Impression: Osteolytic lesion Pathological fracture of hip Qualifiers: Pathology associated with fracture: neoplastic disease Encounter type: initial encounter Laterality: right Qualified Code(s): M84.551A - Pathological fracture in neoplastic disease, right femur, initial encounter for fracture Prescriptions: No Action amlodipine 10 mg tablet 10 mg PO QAM RF: 0 megestrol 40 mg tablet 80 mg PO BID RF: 0 fluoxetine 10 mg capsule 10 mg PO QAM RF: 0 vitamin B complex [B-Complex] Tablet 1 tab PO QAM RF: 0 cholecalciferol (vitamin D3) [Vitamin D3] 2,000 unit Tablet 2,000 unit PO DAILY RF: 0 magnesium oxide 400 mg magnesium Capsule 400 mg PO DAILY RF: 0 Referrals: Ruben Flores [Primary Care Provider] -
[2019-05-11] MEDS: KETOROLAC 60 MG/2 ML VIAL 30 MG IM (12:05)
[2019-05-11] MEDS: ONDANSETRON 4 MG/2 ML INJ IV (12:21)
[2019-05-11] MEDS: MORPHINE 4 MG/ML INJ IV ×2 (12:21→13:13)
[2019-05-11] MEDS: HYDROMORPHONE 0.5 MG INJ IV ×2 (14:51→17:16)
[2019-05-11 16:51] LABS: Add Manual Diff / Slide Review NO; Basophils Absolute Auto 100 /uL (0-100); Basophils Percent Auto 0.8 % (0-2); Eosinophils Absolute Auto 100 /uL (0-450); Eosinophils Percent Auto 1.3 % (2-4); Hematocrit 38.4 % (36-46); Hemoglobin 12.7 g/dL (12.0-16.0); Lymphocytes Absolute Auto 1400 /uL (1100-4500); Lymphocytes Percent Auto 17.6 % (25-40); Mean Corpuscular HGB Conc 33.2 % (30-36); Mean Corpuscular Hemoglobin 27.4 PG (26-34); Mean Corpuscular Volume 82.7 fL (80-100); Monocytes Absolute Auto 700 /uL (0-900); Monocytes Percent Auto 9.4 % (3-14); Neutrophils Absolute Auto 5600 /uL (1500-7000); Neutrophils Percent Auto 70.9 % (50-75); Platelet Count 230 X10^3/uL (150-400); Red Blood Cell Count 4.64 X10^6/uL (4.0-5.2); Red Cell Distribution Width 13.6 % (11.6-14.8); White Blood Cell Count 7.9 X10^3/uL (4.5-11.0)
[2019-05-11 17:07] LABS: Alanine Aminotransferase 14 IU/L (<35); Albumin 3.6 g/dL (3.5-5.0); Albumin Globulin Ratio 1.1 (1.0-2.8); Alkaline Phosphatase 67 U/L (38-126); Aspartate Aminotransferase 20 IU/L (14-36); BUN Creatinine Ratio 21.3 (6-22); Bilirubin Total 0.4 mg/dL (0.2-1.3); Blood Urea Nitrogen 17 mg/dL (7-17); Calcium 11.1 mg/dL (8.4-10.2); Carbon Dioxide 26 mmol/L (22-32); Chloride 107 mmol/L (98-107); Estimated Glomerular Filt Rate > 60.0 mL/min (>60); Globulin 3.2 g/dL (1.7-4.1); Glucose 87 mg/dL (80-110); HEMOLYSIS < 15 (0-50); Potassium 3.9 mmol/L (3.4-5.1); Sodium 139 mmol/L (137-145); Total Protein 6.8 g/dL (6.3-8.2)
[2019-05-11] MEDS: HYDROMORPHONE 1 MG INJ IV (18:15)
[2019-05-11] MEDS: LIDOCAINE 2% (UROJET) 5 ML GEL TOP (18:24)
[2019-05-11] MEDS: OXYCODONE/ACETAMINOPHEN 5/325 TABLET 2 TAB PO (19:33)
[2019-05-11] MEDS: diphenhydrAMINE 50 MG/ML VIAL 25 MG IV (19:33)
--- NOTE | 2019-05-11 21:29 | PC.NURSE ---
Patient is still awaiting transfer to . Called for a bed at 1904, 2017, and 2121. Pt is aware and will be switched into a hospital bed to make her more comfortable. Pt has no complaints at this time
[2019-05-11] MEDS: MAG HYDROX/ALUM/SIMETH 30 ML UDC PO (21:37)
[2019-05-11] MEDS: OXYCODONE IR 5 MG TABLET 10 MG PO (23:11)
[2019-05-12] MEDS: HYDROMORPHONE 1 MG INJ IV (01:31)
== END 2019-05-12 01:49 | disposition short-term general hospital (02) ==
PROVIDERS: Nurse Practitioner; Emergency Provider Emergency Medicine; Family Provider Internal Medicine Endocrinology, Diabetes & Metabolism; PCP Family Medicine
DX: M89.50 Osteolysis, unspecified site (principal); M84.551A Pathological fracture in neoplastic disease, right femur, initial encounter for fracture
CPT/HCPCS: 36415; 51701; 73700; 80053; 81003; 85025; 96372; 96374; 96375; 96376; 99285; J1170; J1200; J1885; J2270; J2405

== ENCOUNTER → 2020-01-03 09:11 | Outpatient (CLI) | payer MEDICARE, SELFPAY ==
--- NOTE | 2020-01-03 | PATH_ITS ---
Note [facility] Accession Number: [id number] TESTS RESULT FLAG UNITS REF RANGE LAB 01 R THYROID NODULE #2 Clinician ICD10: 01 E04.2 DIAGNOSIS: 01 RIGHT THYROID NODULE #2, FINE NEEDLE ASPIRATION. NEGATIVE FOR MALIGNANT CELLS. ADEQUATE FOR EVALUATION. COLLOID AND FOLLICULAR GROUPS ARE PRESENT. BENIGN FOLLICULAR (GOITEROUS) NODULE (BETHESDA CATEGORY II), SEE COMMENT. COMMENT: MICROSCOPIC EXAMINATION REVEALS A MILDLY CELLULAR ASPIRATE, COMPOSED OF ABUNDANT COLLOID, FOLLICULAR GROUPS WITH FOCAL HURTHLE CELL CHANGES-WITHOUT SIGNIFICANT CYTOLOGIC OR ARCHITECTURAL ATYPIA, AND BACKGROUND MACROPHAGES. THESE FINDINGS SUPPORT A BENIGN FOLLICULAR (GOITEROUS) NODULE. CORRELATION WITH CLINICAL AND RADIOGRAPHIC FINDINGS IS RECOMMENDED. ACCORDING TO THE B[place]ESDA REPORTING SYSTEM FOR THYROID CYTOPATHOLOGY, THE RISK OF MALIGNANCY IN THE CATEGORY BENIGN-CATEGORY II IS 0-3%; THEREFORE RECOMMEND CONTINUED ULTRASOUND SURVEILLANCE WITH REPEAT FNA IF THE NODULE SIGNIFICANTLY INCREASES IN SIZE. Pathologist ICD10: E04.2 01 Patient presents with: Hyperparathyroidism Osteropenia Goiter Kaylee follows up for a few issues. She has intermittent the elevated calcium and has has a high parathyroid level in the past. she did have a nuclear med parathyroid scan in 2016 that showed a possible parathyroid adenoma but never showed up on ultrasound. She has osteopenia with a last bone density completed 2 year ago in 2018. She then was found to have the cancer in her bone/hip after suffering a femu fracture. Kaylee also has a multinodular goiter. 01 Rodrick Franks MD, Pathologist NPI- [id number] 01 Damaso Rodriguez, Jewel Diameter Gauger ([facility]) 01 30 CC, COLORLESS, CLEAR Also received 5 alcohol fixed, 5 quick stained slides, and 1 RNA vial. /[facility] 01/04/2020 1144 [facility] FLAG LEGEND: L-Low Normal,H-High Normal,LL-Alert Low,HH-Alert High <-Panic Low,>-Panic High,A-Abnormal,AA-Critical Abnormal Performed at: 01 =Z [facility] [address] [place] [address] [address], [place] [address] Tello Hightower MD, Performed at: 01 [facility] [address] [address] [place] [address] [address], [place], [place] [id number] MD Tello Hightower MD Phone: [phone]
--- NOTE | 2020-01-03 | DI.US.S_ITS ---
PROCEDURE: US FINE NEEDLE ASPIRATION INDICATIONS: RIGHT THYROID NODULE TECHNIQUE: The indications, alternatives, benefits, risks, and complications of the procedure were explained to the patient. Written informed consent was obtained and placed in the chart. The thyroid region was examined sonographically and a site was chosen for ultrasound guided percutaneous sampling. The skin was prepared and draped in the usual fashion, and anesthetized with 1% lidocaine infiltrated from the skin down to the thyroid gland. Multiple passes were then performed, with contents emptied into an appropriate pathology specimen container. A bandage was applied to the area of access at completion of the study. COMPARISON: [facility], US, US THYROID, 03/16/2019, 8:50. FINDINGS: Location(s) of lesion(s) sampled: Mid right lobe (nodule 2 on the comparison study.) [place]: 25 gauge hypodermic needles. Number of passes: 6 Medications: 1% lidocaine for local anaesthesia. Complications: None. IMPRESSION: Successful ultrasound-guided thyroid nodule fine needle aspiration, with cytology results pending. Please see chart below for management recommendations based on cytology results. [facility] ReportingRecommendationsNon-diagnostic* Repeat US-guided FNA, with on-site cytology evaluation if possible. * Repeated non-diagnostic nodules without high suspicion US features: close observation vs surgical consult. * Consider surgery if nodule has high suspicion US features, grows >20% in 2 dimensions on followup, or patient has clinical risk factors for malignancy. Benign* If nodule has high suspicion US features: repeat US and FNA within 12 months. * If nodule has low to intermediate suspicion US features: repeat US at 12-24 months. If nodule grows (20% increase in at least 2 dimensions, with minimal increase of 2 mm or >50% change in volume), or development of new suspicious US features, then repeat FNA or continue followup. * If nodule has very low suspicion US features: followup US at >24 months. Atypia of undetermined significance, follicular lesion of undetermined significanceRepeat FNA, molecular testing, followup US, or surgical consult.Follicular neoplasm, suspicious for follicular neoplasmSurgical consult; also consider molecular testing. Suspicious for malignancySurgical consult.MalignantSurgical consult. Dictated by: Pb Bo M.D. on 01/03/2020 at 14:59 Approved by: Pb Bo M.D. on 01/03/2020 at 15:01
== END ==
PROVIDERS: Family Provider Internal Medicine Endocrinology, Diabetes & Metabolism; PCP Family Medicine; Referring Provider Internal Medicine Endocrinology, Diabetes & Metabolism; Visit Provider Internal Medicine Endocrinology, Diabetes & Metabolism
DX: E04.2 Nontoxic multinodular goiter (principal)
CPT/HCPCS: 10005

== ENCOUNTER → 2020-08-24 08:46 | Outpatient (CLI) | payer MEDICARE, SELFPAY ==
--- NOTE | 2020-08-24 | DI.CT.S_ITS ---
///PROCEDURE: CT ABDOMEN PELVIS WO/W CON INDICATIONS: Right upper quadrant pain. History of uterine sarcoma. TECHNIQUE: 5 mm thick sections acquired from the diaphragms to the iliac crests. After the administration of intravenous contrast, 5 mm thick sections acquired from the diaphragms to the symphysis. 5 mm thick coronal and sagittal reformats were acquired. For radiation dose reduction, the following was used: automated exposure control, adjustment of mA and/or kV according to patient size. COMPARISON: Outside Film, CT, CT CHEST ABDOMEN PELVIS WITH CONTRAST, 05/28/2020, 10:57. FINDINGS: Image quality: Excellent. ABDOMEN: Lung bases: There is a right lower lobe pulmonary nodule posteriorly on series 3, image 10 measuring up to 0.9 cm which has increased in size from 0.6 cm on the prior study. In the left lower lobe, there is a subpleural nodule on series 3, image 5 measuring up to 0.6 cm increased from 0.3 cm previously. An adjacent pleural-based nodule on series 3, image 3 measuring up to 0.4 cm also appears increased in size. There is also interval increase in size of small right middle lobe nodules on series 3, image 3 measuring 0.4 cm and image 4 measuring 0.4 cm. Findings are consistent with progression of metastatic disease. Heart size is normal. There is a small hiatal hernia. Solid organs: A lobulated cyst is redemonstrated in the left hepatic lobe. A small subcapsular hypodense focus is also demonstrated laterally in the right hepatic lobe measuring up to 0.4 cm which is too small to characterize but likely represents a cyst. The gallbladder appears within normal limits without calcified gallstones. Biliary system is non-dilated. Pancreas enhances normally. No peripancreatic fat stranding or fluid collections. No pancreatic duct dilatation. The spleen is normal in size. No adrenal nodules. Kidneys demonstrate no hydronephrosis. Bowel and peritoneum: Stomach, small and large bowel loops are normal in caliber and wall thickness. No free fluid or air. 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 There is also partially visualized joints a necrotic lobulated mass more inferiorly in the right lower quadrant measuring up to 3.7 x 3.5 cm likely representing a metastatic enlarged common carotid node. This also appears increased in size from the prior study. Aorta and inferior vena are normal in caliber. Miscellaneous: There is a right paracentral wide-mouth ventral abdominal hernia containing a short segment of the transverse colon. No associated bowel obstruction or strangulation. The fascial defect measures up to approximately 4.7 x 2.9 cm. Within the right abdominal wall, there is a small hypoattenuating ill-defined region within the internal oblique muscle. Bones: No suspicious bony lesions. No vertebral body compression fractures. IMPRESSION: 1. Increase in size of pulmonary nodules in the visualized lung bases compatible with progression of metastatic disease. 2. Increase in size of mass lesions in the right abdomen likely representing enlarged necrotic mesenteric and common iliac lymph nodes also compatible with progression of metastatic disease. 3. Ill-defined hypoattenuation and slight enlargement of the right internal oblique muscle. The finding is nonspecific and may reflect a muscle strain but developing metastatic disease cannot be excluded. Dictated by: Tello Gusman M.D. on 08/24/2020 at 14:40 Approved by: Tello Gusman M.D. on 08/24/2020 at 14:55
[2020-08-24 09:32] LABS: BUN Creatinine Ratio 26.3 (6-22); Blood Urea Nitrogen 21 mg/dL (7-17); Calcium 11.4 mg/dL (8.4-10.2); Carbon Dioxide 26 mmol/L (22-32); Chloride 106 mmol/L (98-107); Estimated Glomerular Filt Rate > 60.0 mL/min (>60); Glucose 105 mg/dL (80-110); HEMOLYSIS < 15 (0-50); Potassium 4.1 mmol/L (3.4-5.1); Sodium 137 mmol/L (137-145)
== END ==
PROVIDERS: Family Provider Internal Medicine Endocrinology, Diabetes & Metabolism; PCP Family Medicine; Referring Provider Family Medicine; Visit Provider Family Medicine
DX: R10.11 Right upper quadrant pain (principal); K43.9 Ventral hernia without obstruction or gangrene; C80.1 Malignant (primary) neoplasm, unspecified; C79.89 Secondary malignant neoplasm of other specified sites; R91.8 Other nonspecific abnormal finding of lung field; K44.9 Diaphragmatic hernia without obstruction or gangrene
CPT/HCPCS: 36415; 74178; 80048; Q9967

== ENCOUNTER → 2020-12-13 11:29 | Outpatient (CLI) | payer MEDICARE, SELFPAY | PROVIDERS: Family Provider Internal Medicine Endocrinology, Diabetes & Metabolism; PCP Family Medicine; Visit Provider Family Medicine | DX: G89.18 Other acute postprocedural pain (principal); R10.9 Unspecified abdominal pain; Z91.89 Other specified personal risk factors, not elsewhere classified | CPT/HCPCS: 87077; 87086; 87186 ==

== ENCOUNTER → 2021-01-16 09:26 | Outpatient (CLI) | payer MEDICARE, SELFPAY ==
[2021-01-16 21:15] LABS: COVID19 - ORCAS (NP or Nasal) Negative (Negative)
== END ==
PROVIDERS: Family Provider Internal Medicine Endocrinology, Diabetes & Metabolism; PCP Family Medicine; Visit Provider Physician Assistant Medical
DX: Z20.822 Contact with and (suspected) exposure to COVID-19 (principal)
CPT/HCPCS: C9803; U0003